=== PATIENT | male | born 1975 | race Caucasian/White ===

== ENCOUNTER 2017-04-19 12:54 | Emergency (ER) | payer MEDICAID ==
[~2017-04-19] VITALS: Ht 170.2 cm; Wt 75.0 kg
[2017-04-19 12:55] VITALS: BP 122/78
[2017-04-19] MEDS ORDERED: METHYLPREDNISOLONE SOD SUCC 125 MG/2 ML VIAL IM ONE (13:15)
[2017-04-19] MEDS ORDERED: FAMOTIDINE 20MG TABLET PO ONE (13:15)
[2017-04-19] MEDS ORDERED: DIPHENHYDRAMINE 25MG CAPSULE PO ONE (13:15)
== END 2017-04-19 14:04 | disposition home or self-care (01) ==
LOC: ER 13:41
DX: T78.40XA Allergy, unspecified, initial encounter (principal); Z88.8 Allergy status to other drugs, medicaments and biological substances
CPT/HCPCS: 96372; 99283; J2930; Q0163